=== PATIENT | female | born 1930 | race Caucasian/White ===

== ENCOUNTER 2016-05-12 17:42 | Emergency (ER) | payer MEDICARE, OTHER ==
[~2016-05-12] VITALS: Ht 162.6 cm; Wt 65.9 kg
[~2016-05-12 17:42] MED LIST: ALEN70TA30 PO; ASPI-535 PO; ASPI-664 PO; COL250 PO; DOCU250C58 PO; IBUP400T22 PO; ISOS5TAB2 PO; ISOS5TAB23 PO; MELO-37 PO; OMEP20CA16 PO; ROSU20TA PO
[2016-05-12 17:44] VITALS: Ht 162.6 cm; Wt 65.9 kg
[2016-05-12 18:20] LABS: ADD SCAN DIFF NO
[2016-05-12 18:23] LABS: BASOPHILS % 0.5 % (0.0-2.0); EOSINOPHILS # 0.1 10^3/ul (0.0-0.5); HEMATOCRIT 30.1 % (37.0-47.0); HEMOGLOBIN 10.3 g/dl (12.0-16.0); LYMPHOCYTES # 1.8 10^3/ul (0.8-2.9); LYMPHOCYTES % 30.2 % (15.0-51.0); MEAN CORPUSCULAR HEMOGLOBIN 29.9 pg (29.0-33.0); MEAN CORPUSCULAR HGB CONC 34.2 g/dl (32.0-37.0); MEAN CORPUSCULAR VOLUME 87.5 fl (82.0-101.0); MEAN PLATELET VOLUME 9.3 fl (7.4-10.4); MONOCYTE # 0.3 10^3/ul (0.3-0.9); MONOCYTES % 5.5 % (0.0-11.0); NEUTROPHIL # 3.7 10^3/ul (1.6-7.5); NEUTROPHILS % 62.5 % (39.0-77.0); PLATELET COUNT 213 10^3/UL (140-415); RED BLOOD COUNT 3.44 10^6/ul (4.20-5.40); RED CELL DISTRIBUTION WIDTH 13.8 % (11.5-14.5)
[2016-05-12 18:37] LABS: CHLORIDE 105 mmol/L (97-110); POTASSIUM 3.8 mmol/L (3.5-5.1); SODIUM 141 mmol/L (135-144)
[2016-05-12 18:40] LABS: ANION GAP 19 (8-16); BLOOD UREA NITROGEN 13 mg/dl (7-20); CALCIUM 9.5 mg/dl (8.4-10.2); CARBON DIOXIDE 21 mmol/L (21-31); CREATININE 0.65 mg/dl (0.44-1.00); GLUCOSE 226 mg/dl (70-220)
[2016-05-12 18:46] LABS: INR 1.03; PROTIME 13.5 Sec (12.2-14.2); PT RATIO 1.1
[2016-05-12 18:48] LABS: PARTIAL THROMBOPLASTIN TIME 27.7 Sec (25.0-35.0)
[2016-05-12 18:55] LABS: TROPONIN-I < 0.012 ng/ml (0.00-0.12)
--- NOTE | 2016-05-12 18:59 | RADRPT ---
PROCEDURE: XR Chest. CLINICAL INDICATION: Shortness of breath. TECHNIQUE: Single frontal view. COMPARISON: 04/23/2015. FINDINGS: The lungs are clear. The heart size is normal. There are sternal wires and mediastinal clips. Calcification is present in the aorta consistent with atherosclerosis. There is no pleural effusion. There is no pneumothorax. IMPRESSION: 1. Previous median sternotomy. 2. Atherosclerosis. 3. Clear lungs. RPTAT: QQ .Bill Tirado MD, MD Date Time Electronically viewed and signed by .Bill Tirado MD, MD on 05/12/2016 18:58 .R/
[2016-05-12] MEDS ORDERED: ISOS30TA18 PO (19:32)
[2016-05-12] MEDS ORDERED: ERGO500037 PO (19:33)
[2016-05-12] MEDS ORDERED: AMLO-350 PO (19:34)
[2016-05-12 22:45] VITALS: BP 141/59; PULSE 74; RESP 16; TEMP 98.3
--- NOTE | 2016-05-14 04:42 | ERD ---
DATE OF SERVICE: 05/12/2016 HISTORY OF PRESENT ILLNESS: This 85-year-old female was brought in by family for having chest pain with shortness of breath within the center and left side of her chest, described as a sharp pain joel t began approximately 1 hour prior to arrival. She had just had an argument with family member, and then she began to feel the chest pain. It was not associated with nausea or vomiting, but it was a ssociated with perioral tingling, hand tingling, and shakiness. The pain and sensations have subsid ed somewhat in transit. REVIEW OF SYSTEMS: A 12-point review of systems negative except as in the HPI. PAST MEDICAL HISTORY: Hypertension. PAST SURGICAL HISTORY: Coronary artery bypass graft. FAMILY HISTORY: Noncontributory. SOCIAL HISTORY: Denies tobacco or other drugs, occasionally drinks alcohol with family socially. L karen with family. PHYSICAL EXAMINATION: VITAL SIGNS: Temperature 98.4, pulse 94, blood pressure 116/73, respirations 16, oxygen saturation 98% on room air. GENERAL: No acute distress. HEENT: Normocephalic, atraumatic. CARDIAC: Regular rate and rhythm. No murmurs. LUNGS: Clear to auscultation bilaterally. ABDOMEN: Soft, nontender, nondistended, no masses. EXTREMITIES: No cyanosis, clubbing, or edema. Distal pulses intact. NECK: No JVD. SKIN: No rashes or other lesions. NEUROLOGIC: Alert and oriented x3 with no focal deficits. PSYCHIATRIC: Appears slightly anxious but was calm and cooperative. DIAGNOSTIC WORKUP: CBC significant only for normocytic anemia with hemoglobin of 10.3. BMP is with in normal limits except for glucose of 226. Troponin is negative. Coagulation studies are within n ormal limits with an INR of 1. Chest x-ray interpretation: I see no acute process. I see no widen ed mediastinum, no pneumothorax, no infiltrates, no pulmonary edema, no fractures. EKG interpretati on: Normal sinus rhythm, rate of 77, normal axis, normal intervals, no ST or T-wave changes concern ing for acute ischemia. EMERGENCY DEPARTMENT COURSE AND MEDICAL DECISION MAKING: Chest pain with low suspicion for acute co ronary syndrome. The patient experienced chest pain an shortness of breath with perioral tingling f ollowing an argument. While I am not likely to write off chest pain in a patient with multiple risk factors including advanced age and coronary artery disease, the patient did have 2 negative troponi ns making it very unlikely that she experienced a cardiac event as symptoms were resolving as the tr oponins were taken. She became asymptomatic completely in the emergency room, felt well, and wanted to go home. I am advising that she follow up with her primary care doctor for an echocardiogram ne xt week. She and her family are very agreeable to this plan. I am discharging with return precauti ons to the ER for any return of chest pain or concerning symptoms whatsoever. The patient was given 325 mg aspirin. DISCHARGE DIAGNOSES: 1. Chest pain. 2. Hyperglycemia. 3. Coronary artery disease. DISPOSITION: Home in stable condition. Dictated By: MICHELLE MARTIN/RADHAMES Conf#: [id number] DID#: [id number]
== END 2016-05-12 22:46 | disposition home or self-care (01) ==
LOC: E/R 17:42
DX: R05 Cough (principal); R73.9 Hyperglycemia, unspecified; I25.10 Atherosclerotic heart disease of native coronary artery without angina pectoris; I10 Essential (primary) hypertension; Z95.1 Presence of aortocoronary bypass graft
CPT/HCPCS: 36415; 71010; 80048; 84484; 85025; 85610; 85730; 93005

== ENCOUNTER 2018-07-01 10:28 | Emergency (ER) | payer MEDICARE, OTHER ==
[~2018-07-01] VITALS: Ht 160 cm; Wt 60.0 kg
[~2018-07-01 10:28] MED LIST changes: -ALEN70TA30 PO; +AMLO-350 PO; -ASPI-535 PO; -ASPI-664 PO; +ASPI-817 PO; -COL250 PO; +CRES20 PO; -DOCU250C58 PO; +ERGO500013 PO; -IBUP400T22 PO; +ISOS30TA20 PO; -ISOS5TAB2 PO; -ISOS5TAB23 PO; -ROSU20TA PO
[2018-07-01 10:30] VITALS: Ht 160 cm; Wt 60.0 kg
[2018-07-01] MEDS ORDERED: CHOL100062 PO (13:10)
[2018-07-01] MEDS ORDERED: ASPI-817 PO (13:11)
[2018-07-01] MEDS ORDERED: OMEP20CA16 PO (13:11)
[2018-07-01] MEDS ORDERED: RAMI5CAP64 PO (13:11)
[2018-07-01] MEDS ORDERED: LINA290C PO (13:12)
[2018-07-01] MEDS ORDERED: AMLO-350 PO (13:12)
[2018-07-01] MEDS ORDERED: CRES20 PO (13:12)
[2018-07-01] MEDS ORDERED: ISOS30TA67 PO (13:13)
[2018-07-01] MEDS ORDERED: ERGO500013 PO (13:13)
[2018-07-01] MEDS ORDERED: NAPR-985 PO (14:34)
[2018-07-01 14:57] VITALS: BP 138/78; PULSE 86; RESP 20
--- NOTE | 2018-07-02 06:52 | ERD ---
ER Documentation Chief Complaint Chief Complaint sent from Dr. Maher for headache and needs CT HPI This is an 87-year-old female with a past medical history of hypertension who presents to the emergency department with a bandlike headache for the past month. The patient indicates the headache is worse at night. She had no fevers or shaking or chills. She states the pain radiates into her neck. She had no head trauma. 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 She has been unable to see her primary care physician as she is been too busy taking care of her . Today she went to her PCPs office, Dr. Maher, who immediately sent her to the emergency department for further evaluation. The patient states the neck pain is exacerbated whenever she lifts her arms or moves her head. She has not taken any analgesic medication. She states this is not the worst headache of her life. She denies any numbness or tingling of her upper or lower extremities. ROS All systems reviewed and are negative except as per history of present illness. Medications Home Meds Active Scripts Naproxen* (Naprosyn*) 500 Mg Tablet, 500 MG PO BID PRN for PAIN AND/OR INFLAMMATION, #30 TAB Prov:GUERO WINTERS MD 07/01/18 Reported Medications Ergocalciferol (Vitamin D2) (VITAMIN D2) 50,000 Unit Capsule, 95956 UNIT PO Q SUN, CAP 07/01/18 Isosorbide Mononitrate* (Isosorbide Mononitrate*) 30 Mg Tab.er.24h, 30 MG PO DAILY, TAB 07/01/18 Linaclotide (LINZESS) 290 Mcg Capsule, 290 MCG PO DAILY, #30 CAP 07/01/18 Amlodipine/Valsartan (Amlodipine-Valsartan 5-160 mg) 1 Each Tablet, 1 TAB PO DAILY, #30 TAB 07/01/18 Rosuvastatin Calcium* (Crestor*) 20 Mg Tablet, 20 MG PO QHS, #30 TAB 07/01/18 Aspirin* (Aspirin* EC) 81 Mg Tablet., 81 MG PO DAILY, TAB 07/01/18 Ramipril (Ramipril) 5 Mg Capsule, 5 MG PO DAILY, CAP 07/01/18 Omeprazole* (Omeprazole*) 20 Mg Capsule.dr, 20 MG PO DAILY, #30 CAP 07/01/18 Cholecalciferol* (Vitamin D3*) 1,000 Unit Tablet, 1000 UNIT PO DAILY, TAB 07/01/18 Discontinued Reported Medications Amlodipine/Valsartan (Amlodipine-Valsartan 5-160 mg) 1 Each Tablet, 1 TAB PO DAILY, #30 TAB 05/12/16 Ergocalciferol (Vitamin D2) (VITAMIN D2) 50,000 Unit Capsule, 39337 UNIT PO Q7D, CAP 05/12/16 Isosorbide Dinitrate* (Isosorbide Dinitrate*) 30 Mg Tablet, 30 MG PO QAM, TAB 05/12/16 Aspirin* (Aspirin* EC) 81 Mg Tablet.dr, 81 MG PO DAILY 10/30/10 Omeprazole* (Omeprazole*) 20 Mg Capsule.dr, 20 MG PO DAILY 10/29/10 Meloxicam (Mobic) 15 Mg Tablet, 15 MG PO DAILY 10/29/10 Rosuvastatin Calcium* (Crestor*) 20 Mg Tablet, 20 MG PO DAILY 10/29/10 Allergies Allergies: Coded Allergies: No Known Allergies (Verified Allergy, Mild, 07/01/18) PMhx/Soc History of Surgery: Yes (CABG x 3 1996,ANGIOPLASTY 2009) Anesthesia Reaction: No Hx Neurological Disorder: Yes Hx Respiratory Disorders: No Hx Cardiac Disorders: Yes (HTN) Hx Psychiatric Problems: No Hx Miscellaneous Medical Probl: Yes (ARTHRITIS ALL EXTREMETIES) Hx Alcohol Use: Yes (OCCASSIONALLY,SHE DRANK VODKA) Hx Substance Use: No Hx Tobacco Use: No Smoking Status: Never smoker Physical Exam Vitals Vital Signs Date Temp Pulse Resp B/P (MAP) Pulse Ox O2 O2 Flow FiO2 Time Delivery Rate 07/01/18 98.3 86 20 138/78 98 Room Air 14:57 (98) 07/01/18 98.2 75 18 111/54 99 10:30 (73) Physical Exam Constitutional:Well-developed. Well-nourished. HEENT:Normocephalic. Atraumatic.Pupils were equal round reactive to light. Moist mucous membranes.No tonsillar exudates. Neck: No nuchal rigidity. No lymphadenopathy. No posterior cervical spine tenderness or step-offs. Respiratory: Not using accessory muscles of respiration.Lungs were clear to ausc ultation bilaterally. No rhonchi. No rales. No wheezing. Cardiovascular: Regular rate regular rhythm.No murmurs. No rubs were a ppreciated.S1, S2 normal. Distal pulses are palpable 2+ bilaterally. GI: Abdomen was soft. Nontender. Non Distended. No pulsatile abdominal masses or bruits. No rebound. No guarding. Bowel sounds were present and normal. Muscle skeletal: Full range of motion of both the upper and lower extremities bilaterally.Normal muscle tone.No assymetrical calf tenderness or swelling. Skin: No petechia, no purpura. No lesions on the palms or the soles of the feet. No maculopapular rash. NEURO: Patient was alert, awake, orientated x3.No facial droop. Gait observed and normal with no ataxia.Speech had regular rate and rhythm. No focal neurological deficits. Procedures/MDM The patient presented to the emergency department with a subacute headache that began within weeks to months of onset. My differential diagnosis included but was not limited to chronic subdural hematoma, brain tumor, brain abscess, chronic sinusitis, temporal arteritis, temporomandibular joint syndrome, psuedotumor cerebri, glaucoma, migrane, HTN, intracranial hemorrhage or cerebral ischemia. This was not the patients worse headache of their life. The patient had a complete neurologic and fundoscopic exam performed by myself that was normal with no focal neurological deficits or retinal hemorrhage. The patient stated this headache was not severe or distinct from other headaches and the history with the physical exam findings did not likely suggest SAH. Therefore, I did not feel it was clinically necessary to perform a lumbar puncture and CSF analysis. I obtained a CT scan of the patient's head and neck. There is no intracerebral hemorrhage mass-effect or midline shift. The patient was refusing all analgesic medication. I did feel this could be result of a tension headache. The patient wanted to be discharged. The patient was discharged home in fair condition. They were instructed to return to the emergency department at any time if there was any worsening of their condition. The patient stated they would follow up with their PCP in the next 24-48 hours to initiate a suitable medication regimen under the care of their PCP as well as to allow their PCP to monitor any drug reactions. The patient was discharged home with prescriptions after they gave informed consent to the new medication. They were also fully informed by myself on the adverse effects and adverse drug interactions in order to provide ade uate safeguards to prevent possible adverse reactions to medications. Departure Diagnosis: Primary Impression: Headache Headache type: tension-type Headache chronicity pattern: acute headache Intractability: not intractable Qualified Codes: G44.209 - Tension-type headache, unspecified, not intractable Condition: Fair Patient Instructions: Headache, Unspecified GUERO WINTERS MD July 02, 2018 06:52
== END 2018-07-01 14:58 | disposition home or self-care (01) ==
LOC: E/R 10:28
DX: G44.209 Tension-type headache, unspecified, not intractable (principal); R40.2142 Coma scale, eyes open, spontaneous, at arrival to emergency department; R40.2362 Coma scale, best motor response, obeys commands, at arrival to emergency department; R40.2252 Coma scale, best verbal response, oriented, at arrival to emergency department; I10 Essential (primary) hypertension; Z79.82 Long term (current) use of aspirin; Z95.1 Presence of aortocoronary bypass graft
CPT/HCPCS: 70450; 72125

== ENCOUNTER → 2018-09-26 | Outpatient (CLI) | payer MEDICARE, OTHER ==
[~2018-09-26] MED LIST changes: +CHOL100062 PO; -ISOS30TA20 PO; +ISOS30TA67 PO; +LINA290C PO; -MELO-37 PO; +NAPR-985 PO; +RAMI5CAP64 PO
== END | disposition home or self-care (01) ==
LOC: LAB 07:42
PROVIDERS: ATTEND Internal Medicine Interventional Cardiology
DX: Z95.1 Presence of aortocoronary bypass graft (principal)
CPT/HCPCS: 82565; 84520

== ENCOUNTER → 2018-10-09 | Outpatient (CLI) | payer MEDICARE, OTHER ==
[~2018-10-09] MED LIST changes: +IOHEXOL 100 ML ONE; +NITROGLYCERIN AEROSOL (4.9 GM) ONE; +SOD CHLORIDE 0.9% 100 ML ONE
== END | disposition home or self-care (01) ==
LOC: C/S 08:20
PROVIDERS: ATTEND Internal Medicine Interventional Cardiology
DX: Z95.1 Presence of aortocoronary bypass graft (principal)
CPT/HCPCS: 75571; 75574; Q9967